=== PATIENT | female | born 1985 | race Two or more races ===

== ENCOUNTER 2021-01-02 16:15 | Observation (INO) | payer OTHER ==
[~2021-01-02] VITALS: Ht 162.6 cm; Wt 63.2 kg
[~2021-01-02 16:15] MED LIST: MIRT-89 PO
[2021-01-02] MEDS ORDERED: SODIUM CHLORIDE 0.9% 1,000 ML IV ONE ×2 (18:15→21:15)
[2021-01-02] MEDS ORDERED: NALOXONE HCL 1 MG/ML 2 ML SYG IVP ONE (18:15)
[2021-01-02 18:37] LABS: BASOPHILS % (AUTO) 0.3 % (0.0-2.0); EOSINOPHILS % (AUTO) 0.8 % (1.0-6.0); HEMATOCRIT 38.9 % (36-46); HEMOGLOBIN 12.8 g/dL (12.0-16.0); LYMPHOCYTES # (AUTO) 0.9 K/uL (1.0-4.8); LYMPHOCYTES % (AUTO) 12.1 % (22.0-44.0); MEAN CORPUSCULAR HEMOGLOBIN 29.4 pg (26.0-34.0); MEAN CORPUSCULAR VOLUME 89 fL (80-100); MONOCYTES # (AUTO) 0.3 K/uL (0.1-1.0); MONOCYTES % (AUTO) 4.2 % (2.0-9.0); NEUTROPHILS # (AUTO) 6.1 K/uL (1.8-7.7); NEUTROPHILS % (AUTO) 82.6 % (40.0-70.0); PLATELET COUNT (AUTO) 222 K/uL (150-450); RED BLOOD CELL COUNT(AUTO) 4.37 MIL/uL (4.00-5.20); RED CELL DISTRIBUTION WIDTH 13.8 % (11.5-14.5)
[2021-01-02 19:16] LABS: SALICYLATE 2.3 mg/dL (2.8-20.0)
[2021-01-02 19:33] LABS: ANION GAP 11 mmol/L (8-16); CALCIUM, TOTAL 8.7 mg/dL (8.8-10.5); CARBON DIOXIDE 24 mmol/L (22-29); CHLORIDE 104 mmol/L (98-107); GLUCOSE,RANDOM 99 mg/dL (70-110); POTASSIUM 3.5 mmol/L (3.5-5.1); SODIUM SERUM 139 mmol/L (136-145); UREA NITROGEN, BLOOD 11 mg/dL (7-18)
[2021-01-02 19:34] LABS: ALANINE AMINOTRANSFERASE 14 U/L (12-78); ALBUMIN 3.7 g/dL (3.4-5.0); ALKALINE PHOSPHATASE 76 U/L (46-116); ASPARTATE AMINOTRANSFERASE 22 U/L (15-37); BILIRUBIN,TOTAL 0.5 mg/dL (0.1-1.0); TOTAL PROTEIN, SERUM 7.6 g/dL (6.4-8.2)
[2021-01-02 19:36] LABS: ACETAMINOPHEN < 2 mcg/mL (10-30); CREATININE < 0.15 mg/dL (0.60-1.30); GLOMERULAR FILTR. RATE CALC > 60 mL/min (>60)
[2021-01-02] MEDS ORDERED: 0.9% SODIUM CHLORIDE 10 ML SYRINGE IVP PRN (20:00)
[2021-01-02] MEDS ORDERED: ONDANSETRON HCL 4 MG/2 ML VIAL IVP PRN ×2 (20:00→21:15)
[2021-01-02] MEDS ORDERED: ACETAMINOPHEN 325 MG TABLET PO PRN ×2 (20:00→21:15)
[2021-01-02 20:20] LABS: COVID AG,FIA SOURCE NASOPHARYNGEAL
[2021-01-02] MEDS ORDERED: BISACODYL 10 MG RECTAL RECTAL SUPPOSITORY PR PRN (21:15)
[2021-01-02] MEDS ORDERED: ZOLPIDEM TARTRATE 5 MG TABLET PO PRN (21:15)
[2021-01-02] MEDS ORDERED: MAGNESIUM HYDROXIDE SUSPENSION 30 ML UDCUP PO PRN (21:15)
[2021-01-02] MEDS ORDERED: HYDROCODONE/ACETAMINOPHEN 5-325 MG TABLET PO PRN (21:15)
[2021-01-02] MEDS ORDERED: MORPHINE SULFATE 2 MG/ML SYRINGE IVP PRN (21:15)
[2021-01-03 06:47] LABS: ANION GAP 8 mmol/L (8-16); BASOPHILS % (AUTO) 0.4 % (0.0-2.0); CALCIUM, TOTAL 8.9 mg/dL (8.8-10.5); CARBON DIOXIDE 27 mmol/L (22-29); CHLORIDE 104 mmol/L (98-107); CREATININE 0.45 mg/dL (0.60-1.30); EOSINOPHILS % (AUTO) 1.8 % (1.0-6.0); GLOMERULAR FILTR. RATE CALC > 60 mL/min (>60); GLUCOSE,RANDOM 85 mg/dL (70-110); HEMATOCRIT 37.6 % (36-46); HEMOGLOBIN 12.8 g/dL (12.0-16.0); LYMPHOCYTES # (AUTO) 1.5 K/uL (1.0-4.8); LYMPHOCYTES % (AUTO) 31.3 % (22.0-44.0); MEAN CORPUSCULAR VOLUME 88 fL (80-100); MONOCYTES # (AUTO) 0.3 K/uL (0.1-1.0); MONOCYTES % (AUTO) 6.6 % (2.0-9.0); NEUTROPHILS # (AUTO) 2.9 K/uL (1.8-7.7); NEUTROPHILS % (AUTO) 59.9 % (40.0-70.0); PLATELET COUNT (AUTO) 219 K/uL (150-450); POTASSIUM 3.7 mmol/L (3.5-5.1); RED BLOOD CELL COUNT(AUTO) 4.26 MIL/uL (4.00-5.20); SODIUM SERUM 139 mmol/L (136-145); UREA NITROGEN, BLOOD 10 mg/dL (7-18)
[2021-01-03 08:02] VITALS: BP 129/76
[2021-01-03] MEDS: HEPARIN SODIUM,PORCINE 5,000 UNITS/ML VIAL SQ SCH ×2 (08:18)
[2021-01-03] MEDS ORDERED: PANTOPRAZOLE SODIUM 40 MG DR TABLET PO SCH (09:00)
[2021-01-03] MEDS ORDERED: DOCUSATE SODIUM 100 MG CAPSULE PO SCH (09:00)
== END 2021-01-03 12:27 | disposition home or self-care (01) ==
LOC: EDBD 16:18 → EMS 16:18 → 6N 01-03 05:39 → INTOOBSV 01-03 05:39
PROVIDERS: ADMIT Internal Medicine; ATTEND Internal Medicine
DX: G92.9 Unspecified toxic encephalopathy (principal); E44.0 Moderate protein-calorie malnutrition; Z20.822 Contact with and (suspected) exposure to COVID-19; Z79.899 Other long term (current) drug therapy
CPT/HCPCS: 36415; 51701; 70450; 71045; 80048; 80053; 84703; 85025 ×2; 87426; 93005; 96361 ×2; 96372; 96374; 99219; 99285; G0480 ×2; G0481; J1644; J2310; J7030